=== PATIENT | male | born 1975 | race Caucasian/White ===

== ENCOUNTER 2018-02-05 02:11 | Observation (INO) ==
--- NOTE | 2018-02-05 02:35 | ED ---
HPI General Chief complaint: Epistaxis Stated complaint: Nose bleed Time Seen by Provider: 02/05/18 02:36 History of Present Illness HPI narrative: Patient is a 42-year-old male presents emergency department for evaluation of nasal bleeding for the past 2 hours. Patient states he also had some bloody spotting on Saturday 3 days ago. Of note the patient on 01/21/2018 had operative resection of nasal polyp from the inferior turbinate. He also had repair of nasal septal fracture at that time. This was done by Dr. Rolon. Patient states his been sometimes had any blood work did not have any preoperative blood work prior to this procedure. He states he has been feeling a little dizzy and a little weak as well. States he has been passing large clots primarily from the right nare. He states is also been spitting up some blood. He also endorses feeling very faint, associated signs and symptoms, contacts, duration as above. Related Data Home Medications Medication Instructions Recorded Confirmed cetirizine [All Day Allergy 10 mg PO DAILY 01/20/18 02/05/18 (cetirizine)] fluticasone 1 spray INTRANASAL DAILY 01/20/18 02/05/18 Allergies Allergy/AdvReac Type Severity Reaction Status Date / Time No Known Allergies Allergy Mild Uncoded 12/20/06 14:27 Review of Systems ROS: all other systems reviewed are negative PMFSH Surgical History Surgical History History of nasal surgery (Acute) Hx of hand surgery (Acute) Social History Social History Substance History: No History of Abuse Second Hand Smoke Exposure: Yes Smoking Status: Never smoker Tobacco Type: Cigarettes How Often Do You Have a Drink Containing Alcohol: Monthly or less Recent Travel in [facility] within the Last 8 Weeks: No Recent Out of Country Travel within the Last 8 Weeks: No Exam Narrative Exam Narrative: GENERAL: Well-developed well-nourished diaphoretic male. SKIN: Diaphoretic. HEAD: Atraumatic. Normocephalic. EYES: Pupils equal and round. No scleral icterus. No injection or drainage. ENT: Copious nasal bleeding from both nares, he is also spitting up some blood. The briskness of the bleeding prevents any visual inspection of the nasopharyngeal mucosa. After packing patient is coughing up small blood clots but does NOT appear to have any blood running down the posterior aspect of his oropharynx. NECK: Trachea midline. No JVD. CARDIOVASCULAR: Regular rhythm with tachycardia. No murmur appreciated. RESPIRATORY: No accessory muscle use. Clear to auscultation. Breath sounds equal bilaterally. GASTROINTESTINAL: Abdomen soft, non-tender, nondistended. Hepatic and splenic margins not palpable. MUSCULOSKELETAL: No obvious deformities. No clubbing. No cyanosis. No edema. NEUROLOGICAL: Awake and alert. No obvious cranial nerve deficits. Motor grossly within normal limits. Normal speech. PSYCHIATRIC: Appropriate mood and affect; insight and judgment normal. Course Initial Documented Vital Signs Pulse Rate 125 H 02/05/18 02:31 Respiratory Rate 18 02/05/18 02:31 Blood Pressure 132/92 H 02/05/18 02:31 Pulse Oximetry 97 02/05/18 02:31 Last Documented Vital Signs Pulse Rate 98 H 02/05/18 04:11 Respiratory Rate 18 02/05/18 04:11 Blood Pressure 125/86 02/05/18 04:11 Pulse Oximetry 98 02/05/18 04:11 Medical Decision Making MDM Narrative Medical decision making narrative: Patient was brought back to the emergency department, he is probably had 100 cc of bleeding from the nose alone since being here. He was immediately packed with a Afrin coated 10 cm anterior posterior Rhino Rocket on the right nare. Same was attempted on the left side however only about 5 cm could be passed on multiple attempts as I am eating some sort of resistance. Shortly after the patient was packed the patient bleeding appeared to be fairly well controlled. I stepped out for a moment to place some orders. When i returned to the room I was informed by the nurse of the patient stated that he was going to pass out and indeed did so. Patient was unconscious when I stepped in the room and was only unconscious for 30-45 seconds. His heart rate had dropped to the low 70's and his blood pressure had dropped to the lowest of 93/66. An additional large bore access was obtained the patient was given 2 L bolus of normal saline. He had quick return of normal mental status. Blood pressure returned to 114/84 and pulse of 89. Shortly after passing out the patient had fairly large emesis production which was grossly bloody with clots. This is probably 500 cc of grossly bloody emesis. Patient was given Zofran. His bleeding appears to continue to be controlled. The left-sided anterior nasal packing ultimately expressed itself and was removed completely. Patient does NOT appear to have any bleeding from the left nare. Patient was ultimately then with Dr. Lombardo who is on-call for Dr. Rolon. He would recommend admission to the hospital for possibly reexploration. I think this is a reasonable approach. We will continue to observe him in the emergency department for some time such time that I feel that he is stable enough to be going to the floor. Review the patient's initial lab work shows white count of 13, normal differential, hemoglobin 13.3. Platelet count normal, glucose minimally elevated to 191, electrolites within normal limits. PTT and PT/INR within normal limits. An H&H is being repeated now that the patient is completed a 2 L bolus and is now 10.3 Patient syncope certainly could be from hypovolemia, also possible is that he had a vasovagal reaction while vomiting blood. He continues to gag/cough on some small clots in the back of his throat but is projecting his airway quite well. He remains alert awake and oriented. patient discussed with Sari MARINELLI on with Dr. Kari zuniga of [facility] service. Will admit. Discussed Dr. Rolon to see this morning and trending of H/H. No return of bleeding since initial packing 2 hours ago. what Follows a summary of the operative report 111 by Fabian Rolon MD. Review of the operative note from 111 shows the patient preoperative diagnoses were: chronic pansinusitis Sino nasal polyposis nasal airway obstruction nasal septal deviation hypertrophied inferior turbinates. Procedures he had performed our Open repair of nasal septal fracture Bilateral submucosal resection of inferior turbinates Bilateral endoscopic total ethmoidectomy Bilateral endoscopic maxillary antrostomy with removal of maxillary sinus tissue Bilateral endoscopic exploration of right frontal sinus ducts. Total documented blood loss was 100 cc. View of the procedure in detail for the patient appeared to have quite a burden of polyps. The right side did have some polyps extending into the posterior nasopharynx as well. Medical Screen Exam Complete: Yes Emergency Medical Condition: Yes Lab Data Result diagrams: 02/05/18 03:15 02/05/18 02:54 Lab Results 02/05/18 02/05/18 02/05/18 Range/Units 02:54 02:54 02:54 CBC w Diff Auto diff final WBC 13.0 H (4.0-11.0) th/mm3 RBC 4.34 L (4.50-5.90) mil/mm3 Hgb 13.3 (13.0-17.0) gm/dL Hct 38.8 L (39.0-51.0) % MCV 89.3 (80.0-100.0) fL MCH 30.7 (27.0-34.0) pg MCHC 34.4 (32.0-36.0) % RDW 12.1 (11.6-17.2) % Plt Count 300 (150-450) th/mm3 MPV 9.9 (7.0-11.0) fL Neut % (Auto) 69.2 (16.0-70.0) % Lymph % (Auto) 22.5 (9.0-44.0) % Andrew % (Auto) 6.1 (0.0-8.0) % Eos % (Auto) 1.7 (0.0-4.0) % Baso % (Auto) 0.5 (0.0-2.0) % Neut # (Auto) 9.0 H (1.8-7.7) th/mm3 Lymph # (Auto) 2.9 (1.0-4.8) th/mm3 Andrew # (Auto) 0.8 (0.0-0.9) th/mm3 Eos # (Auto) 0.2 (0.0-0.4) th/mm3 Baso # (Auto) 0.1 (0.0-0.2) th/mm3 WBC Differential . Differential Comment . PT 10.1 (9.8-11.6) sec INR 1.0 Ratio APTT 23.9 (23.4-31.7) sec Sodium 140 (136-145) meq/L Potassium 4.0 (3.5-5.1) meq/L Chloride 106 (98-107) meq/L Carbon Dioxide 26.3 (21.0-32.0) meq/L Anion Gap 8 (5-15) meq/L BUN 14 (7-18) mg/dL Creatinine 1.20 (0.60-1.30) mg/dL Estimated GFR 67 L (>89) mL/min Random Glucose 191 H (74-106) mg/dL Calcium 7.9 L (8.5-10.1) mg/dL Total Bilirubin 0.4 (0.2-1.0) mg/dL AST 18 (15-37) U/L ALT 38 (12-78) U/L Alkaline Phosphatase 119 H (45-117) U/L Total Protein 6.7 (6.4-8.2) g/dL Albumin 3.4 (3.4-5.0) g/dL Blood Type Blood Type Recheck 02/05/18 02/05/18 Range/Units 02:54 03:15 CBC w Diff WBC (4.0-11.0) th/mm3 RBC (4.50-5.90) mil/mm3 Hgb 10.3 L D (13.0-17.0) gm/dL Hct 29.5 L (39.0-51.0) % MCV (80.0-100.0) fL MCH (27.0-34.0) pg MCHC (32.0-36.0) % RDW (11.6-17.2) % Plt Count (150-450) th/mm3 MPV (7.0-11.0) fL Neut % (Auto) (16.0-70.0) % Lymph % (Auto) (9.0-44.0) % Andrew % (Auto) (0.0-8.0) % Eos % (Auto) (0.0-4.0) % Baso % (Auto) (0.0-2.0) % Neut # (Auto) (1.8-7.7) th/mm3 Lymph # (Auto) (1.0-4.8) th/mm3 Andrew # (Auto) (0.0-0.9) th/mm3 Eos # (Auto) (0.0-0.4) th/mm3 Baso # (Auto) (0.0-0.2) th/mm3 WBC Differential Differential Comment PT (9.8-11.6) sec INR Ratio APTT (23.4-31.7) sec Sodium (136-145) meq/L Potassium (3.5-5.1) meq/L Chloride (98-107) meq/L Carbon Dioxide (21.0-32.0) meq/L Anion Gap (5-15) meq/L BUN (7-18) mg/dL Creatinine (0.60-1.30) mg/dL Estimated GFR (>89) mL/min Random Glucose (74-106) mg/dL Calcium (8.5-10.1) mg/dL Total Bilirubin (0.2-1.0) mg/dL AST (15-37) U/L ALT (12-78) U/L Alkaline Phosphatase (45-117) U/L Total Protein (6.4-8.2) g/dL Albumin (3.4-5.0) g/dL Blood Type A Negative Blood Type Recheck Required Discharge Plan Discharge Disposition Patient Disposition: 30 Still Patient Discharge Condition Condition: Stable Discharge Details Diagnosis: Severe epistaxis, Right-sided epistaxis, Syncope, Anemia Physicians Team ED Provider: Tra Alvarez Primary Care Provider: Morales Jameson Rxs /Orders / Referrals /Forms Prescriptions: No Action fluticasone 50 mcg/actuation [place],Suspension 1 spray INTRANASAL DAILY RF: 0 cetirizine [All Day Allergy (cetirizine)] 10 mg Capsule 10 mg PO DAILY RF: 0 Status ED Status: Admitted Patient
[2018-02-05] MEDS ORDERED: Sod Chloride 0.9% Inj 1,000 ML IV.SIG SCH (02:45)
[2018-02-05 03:00] LABS: Baso # (Auto) 0.1 th/mm3 (0.0-0.2); Baso % (Auto) 0.5 % (0.0-2.0); Eos # (Auto) 0.2 th/mm3 (0.0-0.4); Eos % (Auto) 1.7 % (0.0-4.0); Hematocrit 38.8 % (39.0-51.0); Hemoglobin 13.3 gm/dL (13.0-17.0); Lymph # (Auto) 2.9 th/mm3 (1.0-4.8); Lymph % (Auto) 22.5 % (9.0-44.0); Mean Corpuscular HGB Conc 34.4 % (32.0-36.0); Mean Corpuscular Hemoglobin 30.7 pg (27.0-34.0); Mean Corpuscular Volume 89.3 fL (80.0-100.0); Mean Platelet Volume 9.9 fL (7.0-11.0); Mono # (Auto) 0.8 th/mm3 (0.0-0.9); Mono % (Auto) 6.1 % (0.0-8.0); Neut % (Auto) 69.2 % (16.0-70.0); Platelet Count 300 th/mm3 (150-450); Red Blood Count 4.34 mil/mm3 (4.50-5.90); Red Cell Distribution Width 12.1 % (11.6-17.2)
[2018-02-05 03:06] LABS: Chloride 106 meq/L (98-107); Sodium 140 meq/L (136-145)
[2018-02-05 03:09] LABS: Calcium 7.9 mg/dL (8.5-10.1)
[2018-02-05 03:10] LABS: Activated Partial Thrombo Time 23.9 sec (23.4-31.7); Albumin 3.4 g/dL (3.4-5.0); Anion Gap 8 meq/L (5-15); Blood Urea Nitrogen 14 mg/dL (7-18); Carbon Dioxide 26.3 meq/L (21.0-32.0); Glucose,Random 191 mg/dL (74-106); Prothrombin Time 10.1 sec (9.8-11.6)
[2018-02-05 03:13] LABS: Alanine Aminotransferase 38 U/L (12-78); Aspartate Aminotransferase 18 U/L (15-37); Glomerular Filtration Rate 67 mL/min (>89)
[2018-02-05 03:14] LABS: Total Protein 6.7 g/dL (6.4-8.2)
[2018-02-05 03:16] LABS: Alkaline Phosphatase 119 U/L (45-117)
[2018-02-05 03:50] LABS: Hematocrit 29.5 % (39.0-51.0); Hemoglobin 10.3 gm/dL (13.0-17.0)
[2018-02-05] MEDS ORDERED: Bisacodyl 10 MG Supp RECTAL PRN ×2 (04:40→10:31)
[2018-02-05] MEDS ORDERED: Acetaminophen 325 MG Tablet PO PRN ×2 (04:40→10:31)
[2018-02-05] MEDS ORDERED: Sod Chloride 0.9% Inj 1,000 ML IV.CONT SCH (04:45)
[2018-02-05 05:50] LABS: Hematocrit 31.9 % (39.0-51.0)
[2018-02-05] MEDS: Sod Chloride 0.9% Inj 1,000 ML IV.CONT SCH ×2 (05:52→18:38)
[2018-02-05 08:28] LABS: Hematocrit 32.4 % (39.0-51.0); Hemoglobin 11.2 gm/dL (13.0-17.0)
--- NOTE | 2018-02-05 10:43 | P.HPIM ---
History of Present Illness Primary Care Physician: Morales Jameson DO Patient is a 42-year-old male with no significant past medical history presenting to emergency department for acute epistaxis. Patient reports having nasal surgery 2 weeks prior to presentation and was doing well postop until Saturday when he first noticed epistaxis which continued the entire day but eventually stopped. Patient was doing well until 1 day prior to presentation when he noticed that he woke up in the morning had a large cough and the bleeding restarted and was difficult to control prompting him to seek medical attention. At that time patient noticed palpitations but denied dizziness, loss of consciousness, shortness of breath, lightheadedness, headache, blurry vision, or other acute complaints. No reported trauma. Patient reports that with bleeding he did notice clots. Patient denied aspirin use or blood thinner use. In emergency department bleeding continued and patient had brief episode of loss of consciousness for which she was given 2 L of saline and returned to baseline. Prior surgical team contacted and recommended the patient remain n.p.o. for consideration of further exploration. While in the emergency department patient received significant nasal packing with achieved hemostasis. Initial emergency department lab work showed hemoglobin 13.3, normal platelet count, and electrolytes within normal limits as well as coagulation factors being within normal limits. Allergy: No known drug allergy Social history: Occasional alcohol use socially, no tobacco use. Surgical history: Polyp removal, nasal reconstruction, hand surgery. Family history: Noncontributory, mother: Elevated blood pressure Medication: None. Occasional fluticasone for nasal congestion irregularly Review of Systems Review of Systems: all other systems reviewed are negative [facility] Surgical History Surgical History Hx of hand surgery (Acute) History of nasal surgery (Acute) Social History Social History Substance History: No History of Abuse Second Hand Smoke Exposure: No Smoking Status: Never smoker Tobacco Type: Cigarettes How Often Do You Have a Drink Containing Alcohol: Monthly or less Recent Travel in [facility] within the Last 8 Weeks: No Recent Out of Country Travel within the Last 8 Weeks: No Immunization History Tetanus Immunization: >5 Years Medications and Allergies Allergies Allergy/AdvReac Type Severity Reaction Status Date / Time No Known Allergies Allergy Mild Uncoded 12/20/06 14:27 Home Medications Medication Instructions Recorded Confirmed Type cetirizine [All Day Allergy 10 mg PO DAILY 01/20/18 02/05/18 History (cetirizine)] fluticasone 1 spray INTRANASAL DAILY 01/20/18 02/05/18 History Active Medications: Active Medications Acetaminophen (Tylenol) 650 mg PO Q4H PRN PRN Reason: Temp > 100.4 Acetaminophen (Tylenol) 650 mg PO Q4H PRN PRN Reason: Temp > 100.4 Al Hydroxide/Mg Hydroxide (Milk Of Nader Rod) 30 ml PO Q12H PRN PRN Reason: Mild Constipation Bisacodyl (Dulcolax Supp) 10 mg RECTAL DAILY PRN PRN Reason: SEVERE CONSITIPATION Bisacodyl (Dulcolax Supp) 10 mg RECTAL DAILY PRN PRN Reason: SEVERE CONSITIPATION Sodium Chloride (Ns Inj) 1,000 mls @ 100 mls/hr IV.CONT .Q10H GIL Last Admin: 02/05/18 05:52 Dose: Not Given Ondansetron HCl (Zofran Inj) 4 mg IV.PUSH Q6H PRN PRN Reason: NAUSEA OR VOMITING Ondansetron HCl (Zofran Inj) 4 mg IV.PUSH Q6H PRN PRN Reason: NAUSEA OR VOMITING Sodium Chloride (Ns Flush) 2 ml IV.FLUSH UNSCH PRN PRN Reason: FLUSH AFTER USING IV ACCESS Physical Exam Vital signs: Last Vital Signs Temp 97.2 F L 02/05/18 08:00 Pulse 101 H 02/05/18 08:00 Resp 18 02/05/18 08:00 BP 126/78 02/05/18 08:00 Pulse Ox 97 02/05/18 08:00 Intake & Output 02/03/18 02/04/18 02/05/18 02/06/18 06:59 06:59 06:59 06:59 Intake Total 1000 / 1000 Output Total 200 / 200 Balance 800 / 800 Weight 77.111 kg general: No acute distress, conversational HEENT: EOMI, PERRLA, dried blood with clots in nares. Rhino Rocket in right nare. No blood noted in oropharynx. Cardia vascular: S1/S2, no murmurs rubs or gallops appreciated Respiratory: Clear to auscultation anteriorly and posteriorly Gastroneurology: Soft, nontender, nondistended, no guarding or rebound appreciated. Positive bowel sounds Extremity: Capillary refill less than 2 seconds, no calf tenderness, no edema. Results Labs CBC & Chem 7: 02/05/18 13:00 02/05/18 02:54 Caprin VTE Risk Assessment Caprin VTE Risk Assessment: No/Low Risk (score <= 1) VTE Pharmacological Exception Reason: Active bleeding Caprin Risk Assessment Model: Point Value = 1 Point Value = 2 Point Value = 3 Point Value = 5 Age 41-60 Minor surgery BMI > 25 kg/m2 Swollen legs Varicose veins or History of unexplained or recurrent spontaneous Oral contraceptives or hormone replacement Sepsis (< 1 month) Serious lung disease, including pneumonia (< 1 month) Abnormal pulmonary function Acute myocardial infarction Congestive heart failure (< 1 month) History of inflammatory bowel disease Medical patient at bed rest Age 61-74 Arthroscopic surgery Major open surgery (> 45 min) Laparoscopic surgery (> 45 min) Malignancy Confined to bed (> 72 hours) Immobilizing plaster cast Central venous access Age >= 75 History of VTE Family history of VTE Factor V Leiden Prothrombin [id number] Lupus anticoagulant Anticardiolipin antibodies Elevated serum homocysteine Heparin-induced thrombocytopenia Other congenital or acquired thrombophilia Stroke (< 1 month) Elective arthroplasty Hip, pelvis, or leg fracture Acute spinal cord injury (< 1 month) Prophylaxis Regimen: Total Risk Factor Score Risk Level Prophylaxis Regimen 0-1 Low Early ambulation 2 Moderate Order ONE of the following: *Sequential Compression Device (SCD) *Heparin 5000 units SQ BID 3-4 Higher Order ONE of the following medications: *Heparin 5000 units SQ TID *Enoxaparin/Lovenox 40 mg SQ daily (WT < 150 kg, CrCl > 30 mL/min) *Enoxaparin/Lovenox 30 mg SQ daily (WT < 150 kg, CrCl > 10-29 mL/min) *Enoxaparin/Lovenox 30 mg SQ BID (WT < 150 kg, CrCl > 30 mL/min) AND/OR *Sequential Compression Device (SCD) 5 or more Highest Order ONE of the following medications: *Heparin 5000 units SQ TID (Preferred with Epidurals) *Enoxaparin/Lovenox 40 mg SQ daily (WT < 150 kg, CrCl > 30 mL/min) *Enoxaparin/Lovenox 30 mg SQ daily (WT < 150 kg, CrCl > 10-29 mL/min) *Enoxaparin/Lovenox 30 mg SQ BID (WT < 150 kg, CrCl > 30 mL/min) AND *Sequential Compression Device (SCD) Assessment and Plan Plan ENT: Acute epistaxis, anemia Dr. Rolon consulted and recommendations appreciated via phone conversation Continue to monitor CBC. Patient okay for blood transfusion if necessary. discontinue IVF hydration. Rhino Rocket placed and hemostasis obtained. Fluticasone as needed Patient cleared for diet. - no new labs needed as per ENT. CODE STATUS: Full code DVT prophylaxis: SCD Disposition: MedSurg Diet: N.p.o. for OR in the morning Plan discussed with patient in detail with family present all questions answered.
[2018-02-05 13:17] LABS: Hematocrit 31.4 % (39.0-51.0); Hemoglobin 10.6 gm/dL (13.0-17.0)
[2018-02-05 17:33] LABS: Hematocrit 30.8 % (39.0-51.0); Hemoglobin 10.5 gm/dL (13.0-17.0)
[2018-02-05] MEDS ORDERED: Influenza (Quadrivalent) Vaccine 0.5 ML Syringe IM ONE (18:00)
[2018-02-06] MEDS ORDERED: Thrombin Topical Soln 5,000 UNIT Vial TOPICAL ONE (06:25)
[2018-02-06] MEDS ORDERED: Lidocaine 1%/Epinephrine 1:100,000 Inj 30 ML Vial ONE (06:28)
[2018-02-06] MEDS ORDERED: Lidocaine 1%/Epinephrine 1:100,000 Inj 50 ML Vial ONE (06:29)
[2018-02-06] MEDS ORDERED: Gelatin Size 100 Topical Foam ONE (06:35)
[2018-02-06] MEDS ORDERED: Metoprolol Tartrate 25 MG Tablet PO ONE (06:36)
[2018-02-06] MEDS ORDERED: Chlorhexidine Gluconate 2% 1 Pack (2 Cloths) TOPICAL ONE (06:36)
[2018-02-06] MEDS ORDERED: EPINEPHrine PF/SF Inj 1 MG/ML Ampul I-OCULAR ONE ×2 (06:43)
[2018-02-06] MEDS ORDERED: Famotidine PF Inj 20 MG/2 ML Vial ONE (06:49)
[2018-02-06] MEDS ORDERED: fentaNYL Citrate Inj 100 MCG/2 ML Ampul ONE (06:50)
[2018-02-06] MEDS ORDERED: Sodium Chlor 0.9% Inj 500 ML IV.SIG SCH (07:00)
[2018-02-06] MEDS ORDERED: Succinylcholine Inj 200 MG/10 ML Vial IV.PUSH ONE (07:21)
[2018-02-06] MEDS ORDERED: Lidocaine PF 1% Inj 5 ML Syringe INFILTRATN ONE (07:21)
[2018-02-06] MEDS ORDERED: Ampicillin/Sulbactam Inj 3 GM in Sodium Chloride 0.9% Inj 100 ML IV.SIG SCH (10:00)
--- NOTE | 2018-02-06 10:58 | P.PNIM ---
Subjective Interval history: She is seen and evaluated this morning at the bedside after returning to room from OR. Patient doing well without any complaints of bleeding, coughing up clots, melena, abdominal pain, nausea, vomiting, chest pain, shortness of breath, palpitations, dizziness, lightheadedness, or loss of consciousness. Patient due for follow-up with ENT this afternoon at 1 PM. As per ENT specialist patient is cleared for discharge Physical Exam Vital signs: .Last Vital Signs Temp 97.7 F 02/06/18 08:41 Pulse 79 02/06/18 08:41 Resp 16 02/06/18 08:41 BP 114/71 02/06/18 08:41 Pulse Ox 95 02/06/18 08:41 Intake & Output 02/04/18 02/05/18 02/06/18 02/07/18 06:59 06:59 06:59 06:59 Intake Total 1000 / 1000 1365 / 1365 1700 / 1700 Output Total 200 / 200 Balance 800 / 800 1365 / 1365 1700 / 1700 Weight 77.111 kg 81.9 kg General: No acute distress, conversational HEENT: No blood noted in oropharynx, packing and dressing intact, EOMI Cardia vascular: S1/S2. No tachycardia. Respiratory: Clear to auscultation anteriorly and posteriorly Gastrointestinal: Soft, nontender, nondistended, no guarding or rebound appreciated Extremity: No edema noted Results Labs CBC & Chem 7: 02/05/18 17:10 02/05/18 02:54 Assessment and Plan Plan ENT: Acute epistaxis, anemia Dr. Rolon consulted and recommendations appreciated. Patient clear from ENT standpoint for discharge and outpatient follow-up today at 1 PM Dressing intact patient to follow-up with ENT Fluticasone as needed CODE STATUS: Full code Disposition: Discharge home Diet: Regular diet on discharge Plan discussed with patient and to be discharged today with outpatient follow- up in the clinic. Progress Note: Quality VTE Deep Vein Thrombosis/Pulmonary Embolism Present on Admission: No
--- NOTE | 2018-02-24 09:11 | MP ---
cc: Fabian Rolon MD DATE OF OPERATION: 02/05/2018 SURGEON: Fabian Rolon MD. PREOPERATIVE DIAGNOSIS: Postoperative epistaxis bilaterally. POSTOPERATIVE DIAGNOSIS: Postoperative epistaxis bilaterally. OPERATION PERFORMED: Endoscopic control of epistaxis, bilateral. INDICATIONS: Candelario Reagan is a 42-year-old man in good health. 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 He had 2 brisk episodes of bleeding in the 2 days prior to this procedure. Following the second episode, he presented to the emergency room at [facility] where he was packed and admitted for observation. He returns today for definitive control of epistaxis. DESCRIPTION OF PROCEDURE: The patient was taken to OR #2 and placed in the supine position. Following induction of general anesthesia and intubation, he was prepped and draped for surgery. The inflatable nasal packs were removed and the nasal vaults were evacuated bilaterally using an #8 suction under endoscopic visualization. The nasal vault was then packed bilaterally with cotton pledgets saturated in 0.05% oxymetazoline and remained in place for a period of 5 minutes. They were then removed and the nose was examined endoscopically. There were numerous sites of bleeding bilaterally. On the right side, the primary bleeding site was at the posterior attachment of the middle turbinate where the sphenopalatine artery had been bleeding. This area was cleaned with suction and then cauterized using the suction Bovie at 35 ramirez. Numerous other sites of mucosal lacerations and septal lacerations were cauterized during this process. The left side was then examined. There was no arterial bleeding present, but there were numerous sites of venous bleeding from the inferior turbinates and from the remnants of the middle turbinate. These were also cauterized. The nose was then irrigated and suctioned. The patient was Valsalva'd and there was no evidence of further bleeding. The patient was then reversed from anesthesia and taken to recovery in good condition. COMPLICATIONS: There were no complications. ESTIMATED BLOOD LOSS: 40 mL. MD GRISELDA Weeks/sowmya , 08:16 AM , 08:22 AM
== END 2018-02-06 12:46 | disposition home or self-care (01) ==
LOC: PHED 02:11 → PHEDA 02:11 → PH3 06:19
PROVIDERS: ADMIT Internal Medicine; ATTEND Internal Medicine
DX: R61 Generalized hyperhidrosis; R42 Dizziness and giddiness; Z23 Encounter for immunization; R55 Syncope and collapse; Z77.22 Contact with and (suspected) exposure to environmental tobacco smoke (acute) (chronic); D64.9 Anemia, unspecified; J95.830 Postprocedural hemorrhage of a respiratory system organ or structure following a respiratory system procedure; R53.1 Weakness; R04.0 Epistaxis